=== PATIENT | male | born 1960 | race Caucasian/White ===

== ENCOUNTER 2022-07-11 16:51 | Emergency (ER) | payer OTHER ==
[2022-07-11] MEDS ORDERED: SODIUM CHLORIDE 0.9% 1,000 ML IV STA (17:31)
--- NOTE | 2022-07-11 17:40 | XRAY Report ---
PROCEDURE: Chest 1 View X-Ray INDICATIONS: Chest Pain TECHNIQUE: One view of the chest was acquired. COMPARISON: None FINDINGS: Surgical changes and devices: None. Lungs and pleura: There is trace costophrenic angle blunting. Mild increased pulmonary vascularity. Mediastinum: Mediastinal contours appear normal. Heart size is enlarged. Bones and chest wall: No suspicious bony lesions. Overlying soft tissues appear unremarkable. IMPRESSION: Cardiomegaly with increased vascularity suggestive of edema. Costophrenic angle blunting is present s uggestive trace effusions versus scarring. Reviewed by: Nicole Joy MD on 07/11/2022 5:38 PM PDT Approved by: Nicole Joy MD on 07/11/2022 5:38 PM PDT Station ID: [id number]
[2022-07-11 17:45] LABS: BASOPHILS # (AUTO) 0.1 10^3/uL (0.0-0.1); BASOPHILS % (AUTO) 0.9 %; EOSINOPHILS # (AUTO) 0.1 10^3/uL (0.0-0.7); EOSINOPHILS % (AUTO) 1.5 %; HCT - HEMATOCRIT 42.4 % (42.0-52.0); HGB - HEMOGLOBIN 14.1 g/dL (14.0-18.0); LYMPHOCYTES # (AUTO) 1.5 10^3/uL (1.5-3.5); LYMPHOCYTES % (AUTO) 22.7 %; MEAN CORPUSCULAR HEMOGLOBIN 30.5 pg (27.0-31.0); MEAN CORPUSCULAR HGB CONC 33.3 g/dL (32.0-36.0); MEAN CORPUSCULAR VOLUME 91.6 fL (80.0-94.0); MEAN PLATELET VOLUME 9.4 fL (7.4-11.4); MONOCYTES # (AUTO) 0.6 10^3/uL (0.0-1.0); MONOCYTES % (AUTO) 8.8 %; NEUTROPHILS # (AUTO) 4.3 10^3/uL (1.5-6.6); NEUTROPHILS % (AUTO) 65.2 %; PLT - PLATELET COUNT 272 10^3/uL (130-450); RED BLOOD COUNT 4.63 10^6/uL (4.70-6.10); RED CELL DISTRIBUTION WIDTH 13.5 % (12.0-15.0); WHITE BLOOD COUNT 6.6 x10^3/uL (4.8-10.8)
--- NOTE | 2022-07-11 17:50 | ED Physician Documentation ---
History of Present Illness - Stated complaint Stated Complaint: CHEST PX - Chief complaint Chief Complaint: Cardiac - History obtained from History obtained from: Patient - History of Present Illness Timing: Today Pain level max: 0 Pain level now: 0 - Additonal information Additional information: 61-year-old male presents the emergency department stating that he felt "waves" earlier today. He states that he has appear visiting from [place]. Drank a large amount of gin and tonic last night. He states he did not drink much water today, had half a beer with lunch and after eating lunch felt lightheaded and dizzy like waves were coming over him. No chest pain. No shortness of breath. Lasted for approximately 10 minutes. Now has resolved. Review of Systems Ten Systems: 10 systems reviewed and negative Constitutional: denies: Fever, Chills Nose: denies: Rhinorrhea / runny nose Throat: denies: Sore throat Cardiac: denies: Palpitations, Calf pain Respiratory: denies: Cough GI: denies: Abdominal Pain, Nausea, Vomiting, Diarrhea Skin: denies: Rash Musculoskeletal: denies: Neck pain, Back pain Neurologic: denies: Headache PD PAST MEDICAL HISTORY - Past Medical History Past Medical History: Yes Cardiovascular: Hypertension, Coronary artery disease - Past Surgical History Past Surgical History: Yes Cardiovascular: Coronary stent - Allergies Allergies/Adverse Reactions: Allergies Allergy/AdvReac Type Severity Reaction Status Date / Time erythromycin base Allergy Nausea Verified 07/11/22 17:01 Penicillins Allergy Anaphylaxis Verified 07/11/22 17:01 - Living Situation Living Situation: reports: With family Living Arrangement: reports: At home - Social History Does the pt smoke?: No Does the pt drink ETOH?: Yes Does the pt have substance abuse?: No - Family History Family history: reports: Non contributory PD ED PE NORMAL - Vitals Vital signs reviewed: Yes - General General: Alert and oriented X 3, No acute distress - HEENT HEENT: PERRL, Moist mucous membranes - Neck Neck: Supple, no meningeal sign - Cardiac Cardiac: RRR, No murmur, Strong equal pulses - Respiratory Respiratory: No respiratory distress, Clear bilaterally - Abdomen Abdomen: Soft, Non tender, Non distended - Derm Derm: Warm and dry - Extremities Extremities: No edema, No calf tenderness / cord - Neuro Neuro: Alert and oriented X 3, varnish blender 2-12 intact, No motor deficit, No sensory deficit, Normal speech Eye Opening: Spontaneous Motor: Obeys Commands Verbal: Oriented GCS Score: 15 - Psych Psych: Normal mood, Normal affect Results - Vitals Vitals: Vital Signs - 24 hr 07/11/22 16:58 Temperature 36.6 C Heart Rate 88 Respiratory 20 Rate Blood Pressure 192/87 H O2 Saturation 98 - EKG (time done) 1703 Rate: Rate (enter#) (86) Rhythm: NSR [place]: Normal Intervals: RBBB Ischemia: Q waves (III,avf) - Labs Labs: Laboratory Tests 07/11/22 07/11/22 07/11/22 17:34 17:34 17:34 WBC 6.6 RBC 4.63 L Hgb 14.1 Hct 42.4 MCV 91.6 MCH 30.5 MCHC 33.3 RDW 13.5 Plt Count 272 MPV 9.4 Neut # (Auto) 4.3 Lymph # (Auto) 1.5 [place] # (Auto) 0.6 Eos # (Auto) 0.1 Baso # (Auto) 0.1 Absolute Nucleated RBC 0.00 Nucleated RBC % 0.0 Sodium 138 Potassium 3.9 Chloride 103 Carbon Dioxide 24 Anion Gap 11.0 BUN 14 Creatinine 1.1 Estimated GFR (MDRD) 68 L Glucose 109 H Calcium 9.4 Total Bilirubin 0.5 AST 42 ALT 63 H Alkaline Phosphatase 73 Troponin I High Sens 8.0 Total Protein 8.1 Albumin 4.6 Globulin 3.5 Albumin/Globulin Ratio 1.3 Lipase 35 - Rads (name of study) cxr Radiology: Final report received, EMP read contemporaneously, See rad report PD MEDICAL DECISION MAKING - ED course Complexity details: reviewed results, re-evaluated patient, considered differential (No ST elevation RI, no aortic dissection, no PE, no tension pneumothorax, no aortic aneurysm), d/w patient, d/w family ED course: 61-year-old male with what sounds like a near syncope after eating today. Likely related to dehydration as he consumed a large amount of alcohol last night and did not drink much today as far as water is concerned. Given IV fluids here, symptoms resolved. Possible increased vascularity suggestive of edema on chest x-ray, patient does not have any difficulty breathing. No hypoxia. No respiratory distress. No clinical indication of fluid overload. We will have him follow-up with his doctor for further care. Patient is fully asymptomatic here. No evidence of acute coronary syndrome, PE. Patient counseled regarding signs and symptoms for which I believe and urgent re- evaluation would be necessary. Patient with good understanding of and agreement to plan and is comfortable going home at this time This document was made in part using voice recognition software. While efforts a re made to proofread this document, sound alike and grammatical errors may occur. Cardiomegaly with increased vascularity suggestive of edema. Costophrenic angle blunting is present suggestive trace effusions versus scarring. Departure - Departure Disposition: 01 Home, Self Care Clinical Impression: Near syncope, Dehydration Condition: Good Instructions: ED Dehydration, ED Near Syncope Unkn Follow-Up: your,doctor in 1 week [Other] Comments: Your testing does not show any acute abnormalities today. Please make sure you are drinking plenty of fluid. Please return if you worsen.
[2022-07-11 18:02] LABS: ALBUMIN 4.6 g/dL (3.2-5.5); ALBUMIN/GLOBULIN RATIO 1.3 (1.0-2.2); BILIRUBIN,TOTAL 0.5 mg/dL (0.2-1.0); CALCIUM 9.4 mg/dL (8.5-10.3); CREATININE 1.1 mg/dL (0.6-1.2); POTASSIUM 3.9 mmol/L (3.5-5.0); TOTAL PROTEIN 8.1 g/dL (6.7-8.2)
[2022-07-11 20:10] VITALS: BP 176/94
== END 2022-07-11 19:25 | disposition home or self-care (01) ==
LOC: ED 16:51
DX: R55 Syncope and collapse (principal); E86.0 Dehydration
CPT/HCPCS: 36415; 80053; 83690; 84484; 85025; 93005; 96360; 96361; 99284